=== PATIENT | female | born 1945 | race Caucasian/White ===

== ENCOUNTER 2016-03-11 22:03 | Emergency (ER) | payer MEDICARE, OTHER ==
[2016-03-11 22:22] VITALS: BP 164/94; PULSE 83; TEMP 98.8; BMI 38.4
[2016-03-11] MEDS ORDERED: OXYCODONE HCL 5 MG TABLET PO ONE (22:32)
--- NOTE | 2016-03-11 22:34 | EDPRACDOC ---
- General Information Chief Complaint: Fall Stated Complaint: FALL: WRIST PAIN Time Seen by Provider: 03/11/16 22:28 Mode of Arrival: Car Home Medications: Home Medications Benazepril HCl [Lotensin] 20 mg PO DAILY 02/07/12 Citalopram (anti-depressant) [Celexa] 60 mg PO DAILY 02/07/12 Dicyclomine HCl [Bentyl] 10 mg PO BID 02/07/12 Glipizide 5 mg PO BID 02/07/12 Metformin HCl 1,000 mg PO BID 02/07/12 Solifenacin Succinate [Vesicare] 10 mg PO DAILY 02/07/12 Alprazolam 0.25 mg PO HS PRN 05/11/12 Anastrozole 1 mg PO DAILY 05/11/12 Levothyroxine [Synthroid, Levoxyl] 50 mcg PO DAILY 05/11/12 Fexofenadine HCl [Maren] 180 mg PO DAILY PRN 06/13/12 Meclizine HCl [Antivert] 25 mg PO Q6H PRN 06/13/12 Phentermine HCl [Adipex-P] 37.5 mg PO DAILY 06/24/13 Amoxicillin/Clavulanate Potas. [Augmentin] 875 mg PO BID #20 tab 10/13/14 Oxycodone HCl/Acetaminophen [Percocet 5-325 mg Tablet] 1 - 2 tab PO Q4H PRN #14 tab 10/13/14 Oxycodone HCl/Acetaminophen [Percocet 5-325 mg Tablet] 1 each PO Q4 #20 tablet 03/11/16 Allergies/Adverse Reactions: Allergies Allergy/AdvReac Type Severity Reaction Status Date / Time Iodinated Contrast Media - Allergy Rash-Genera Verified 10/13/14 09:34 IV Dye lized Penicillins Allergy Rash-Genera Verified 10/13/14 09:34 lized - History of Present Illness Onset: 1 hour [employer] HPI: PATIENT TRIPPED IN YARD AND FELL ON OUTSTRETCHED HAND. RIGHT WRIST AND ELBOW TENDER. SWELLING DORSAL RIGHT WRIST Location: Reports: Dorsal Dominant Side: Reports: Right Mechanism: Reports: FOOSH Tetanus Up To Date?: Yes Pain Severity: Reports: Mild Associated Signs and Symptoms: Reports: Elbow Pain ED Past Medical History - History Reviewed Yes Nurses notes reviewed and agree except as marked Travel Outside of [place] in the Last 3 Months?: No - Patient Medical History Neurological History: Reports: Cerebrovascular Accident Cardiac History: Reports: Hypertension, Hypercholesterolemia Respiratory History: Reports: Emphysema GI/ History: Reports: Gastroesophageal Reflux Systemic History: Reports: Cancer, Diabetes Surgical History: Reports: Tonsillectomy/Adnoidectomy - Social Medical History Smoking Status: Former smoker ETOH: None Substance Abuse: None Lives With: Family Lives In: Home EDM Review of Systems - Review of Systems ROS Negative Except as Marked: Yes All systems reviewed and were negative except as marked Constitutional: No Symptoms Reported. negative: Fever, Chills, Weakness, Fatigue, Loss of Appetite Eyes: No Symptoms Reported. negative: Redness, Blurred Vision, Double Vision, Discharge, Pain, Light Sensitive, Photophobia Ears: No Symptoms Reported. negative: Pain, Hearing Loss, Drainage, Ear Pulling Throat: No Symptoms Reported. negative: Pain, Swelling Nose: No Symptoms Reported. negative: Congestion, Bleeding, Discharge, Injection, Swelling, Deformity, Ecchymosis, Tender, Abrasion, Laceration Mouth: No Symptoms Reported. negative: Pain, Drooling Respiratory: No Symptoms Reported. negative: Cough, Brassy Cough, Barky Cough, Shortness of Breath, Wheezing, Hemoptysis Cardiovascular: No Symptoms Reported. negative: Chest Pain, Palpitations, Syncope, Edema, Orthopnea, PND, Skin Mottling, Cyanosis Gastrointestinal: No Symptoms Reported. negative: Pain, Constipation, Nausea, Vomiting, Diarrhea, Melena, Formula Intolerance Genitourinary: No Symptoms Reported. negative: Dysuria, Hematuria, Frequency, Discharge, Bleeding, Testicular Pain, Neurological: No Symptoms Reported. negative: Headache, Dizziness, Seizure, Numbness, Weakness, Speech Difficulty, Gait Difficulty Musculoskeletal: Wrist. negative: Arm, Ankle, Back, Chestwall, Elbow, Forearm, Femur, Foot, Hand, Hip, Knee, Leg, Neck, Pelvis, Ribs, Shoulder Integumentary: No Symptoms Reported. negative: Itching, Rash, Bruising, Wound Allergic/Immunologic: No Symptoms Reported. negative: Hives, Itching Hematologic: No Symptoms Reported. negative: Lymphadenopathy, Easy Bruising, Easy Bleeding Endocrine: No Symptoms Reported. negative: Weight Gain, Weight Loss Psychiatric: No Symptoms Reported. negative: Anxiety, Depression, Hallucinations, Insomnia, Suicidal - Physical Exam Constitutional: Alert (Awake) Oriented to: Time, Person, Place Last recorded Vital Signs: Last Vital Signs Temp 98.8 F 03/11/16 22:17 Pulse 83 03/11/16 22:17 Resp 20 03/11/16 22:17 BP 164/94 03/11/16 22:17 Pulse Ox 95 03/11/16 22:17 Oxygen Pulse Oxygen Saturation 95 O2 Device Room Air Oxygen Flow Rate Fraction of Inspired Oxygen ( FIO2) - HEENT Head: Normal ( normocephalic) Eye Exam: Normal (PERRL, EOMI, Sclera white) Oropharynx: Normal (Pharynx:Moist without exudate,Gums-no swelling) Tympanic Membrane: Normal ENT EAC: Normal TMJ: Normal Nose: No Symptoms Reported (septum midline) Neck: Normal (FROM, trachea at midline) - Respiratory/Cardiovascular Respiratory: Normal - CTA (BBS clear to auscultation without adventitious sounds ) Cardiovascular: Normal (RRR without murmur, gallop or rub) - GI Auscultation: Normal (NABS) Palpation: Normal (Soft,No rebound or guarding, non distended) Tenderness: Non tender Collins's Sign: Negative - Musculoskeletal Back: Normal (Non-Tender) Extremities: Other (RIGHT WRIST TENDERNESS AND SWELLING DORSALLY) - Integumentary Skin: Normal, Warm, Dry Lymphatics: Normal (no adenopathy) - Neurologic Memory Impaired: Normal Motor Function: Normal (Normal tone, Pulses 2+ No cyanosis or edema, FROM) Cranial Nerve: Normal (CN II-X11 intact sensation, strength 5/5) Cerebellar: Normal Mood Description: Normal Perception: Normal ED Wrist Problem Exam Wrist Symptoms: Swelling, Limited ROM Hand Symptoms: Normal Forearm Symptoms: Normal Distal Function/Circulation: Normal - Integumentary Lymphatics: Normal ED Procedures - Splinting 1st splint Location: RIGHT WRIST Hand-Made Type: fiberglass Splint: sugar-tong Pre-Proc Neuro Vasc Exam: normal Post-Proc Neuro Vasc Exam: normal Other Devices: Sling Decision Time to Discharge: 23:07 - Departure Yes I personally saw and evaluated the patient. Disposition: Home Condition: Good Final Diagnosis: Fracture of right distal radius Qualifiers: Encounter type: initial encounter Fracture type: closed Fracture morphology: unspecified fracture morphology Qualified Code(s): S52.501A - Unspecified fracture of the lower end of right radius, initial encounter for closed fracture Instructions: RICE: Routine Care for Injuries, Wrist Fracture in Adults (ED) Education/Counseling Given To: Patient Education/Counseling Given Regarding: Diagnosis, Treatment, Prognosis, Follow Up Referrals: None,No Provider [Primary Care Provider] - One Week Oscar Coughlin MD [Staff Physician] - One Week Prescriptions: Oxycodone HCl/Acetaminophen [Percocet 5-325 mg Tablet] 1 each PO Q4 #20 tablet
--- NOTE | 2016-03-11 22:51 | DIRPT ---
CLINICAL DATA: 70-year-old female with fall and right elbow pain. EXAM: RIGHT ELBOW - COMPLETE 3+ VIEW COMPARISON: Radiograph dated 06/24/2013 FINDINGS: There is no evidence of fracture, dislocation, or joint effusion. There is no evidence of arthropathy or other focal bone abnormality. Soft tissues are unremarkable. IMPRESSION: Negative. Electronically Signed By: Darius Sawant M.D. On: 03/11/2016 22:49
--- NOTE | 2016-03-11 22:53 | DIRPT ---
CLINICAL DATA: Status post fall, with pain and hematoma at the dorsal aspect of the wrist. Initial encounter. EXAM: RIGHT FOREARM - 2 VIEW COMPARISON: Right forearm radiographs performed 06/24/2013 FINDINGS: There appears to be focal cortical irregularity along the distal radial metaphysis, which is only seen on a single view, and not visualized on the wrist radiographs. This is suspicious for a minimally displaced fracture of the distal radial metaphysis. The ulna is unremarkable in appearance. The elbow joint is grossly unremarkable. Dorsal soft tissue swelling is noted at the wrist. The carpal rows appear grossly intact, and demonstrate normal alignment. Mild degenerative change is noted at the first carpometacarpal joint. IMPRESSION: Apparent focal cortical irregularity along the distal radial metaphysis, seen only on a single view, and not visualized on the wrist radiographs. This is suspicious for a minimally displaced fracture of the distal radial metaphysis. Electronically Signed By: Link Doty M.D. On: 03/11/2016 22:50
--- NOTE | 2016-03-11 22:54 | DIRPT ---
CLINICAL DATA: Status post fall, with pain and hematoma at the dorsal aspect of the wrist. Initial encounter. EXAM: RIGHT WRIST - COMPLETE 3+ VIEW COMPARISON: Right wrist radiograph performed 06/24/2013 FINDINGS: On evaluation of concurrent forearm radiographs, there appears to be a minimally displaced fracture of the distal radial metaphysis, not well seen on the wrist radiographs. No significant angulation is seen. Mild degenerative change is noted at the first carpometacarpal joint. The carpal rows are otherwise grossly unremarkable in appearance. Dorsal soft tissue swelling is noted at the level of the wrist. The distal ulna is unremarkable in appearance. IMPRESSION: On evaluation on concurrent forearm radiographs, there appears to be a minimally displaced fracture of the distal radial metaphysis, not well seen on the wrist radiographs. No significant angulation seen. Electronically Signed By: Link Doty M.D. On: 03/11/2016 22:51
== END 2016-03-11 23:28 | disposition home or self-care (01) ==
LOC: ED 22:03
DX: S52.501A Unspecified fracture of the lower end of right radius, initial encounter for closed fracture (principal); W01.0XXA Fall on same level from slipping, tripping and stumbling without subsequent striking against object, initial encounter; Y93.89 Activity, other specified; Y92.007 Garden or yard of unspecified non-institutional (private) residence as the place of occurrence of the external cause
CPT/HCPCS: 29125; 73080; 73090; 73110; 99281; A9270; J3490